=== PATIENT | female | born 1995 | race Two or more races ===

== ENCOUNTER 2021-05-28 12:25 | Inpatient (IN) | payer OTHER ==
[2021-05-28] MEDS ORDERED: FAMOTIDINE 20 MG/50 ML IVPB 20 MG/50 ML MG IVPB ONE (12:31)
[2021-05-28] MEDS ORDERED: methylPREDNISolone NA SUCC 125 MG/2 ML VIAL ONE (12:31)
[2021-05-28] MEDS ORDERED: EPINEPHrine 1:1,000 0.3 MG/0.3 ML SYR IM ONE ×2 (12:35→13:18)
[2021-05-28] MEDS ORDERED: SODIUM CHLORIDE 0.9% 500 ML INFUS.BAG IV ONE ×2 (12:35→13:20)
[2021-05-28] MEDS ORDERED: EPINEPHrine/PF 1 MG/1 ML (1:1,000) AMPULE ONE ×2 (12:37→12:47)
[2021-05-28] MEDS ORDERED: EPINEPHrine 1:1,000 4,000 MCG in DEXTROSE 5%-WATER - 996 ML IV SCH (12:45)
[2021-05-28 13:05] LABS: BASO % 0.5 % (0-2.0); EOS % 5.9 % (0-4.5); HEMATOCRIT 40.1 % (32.4-45.2); HEMOGLOBIN 13.4 GM/dL (10.7-15.3); MCH 28.7 pg (25.7-33.7); MCHC 33.5 g/dl (32.0-36.0); MEAN CELL VOLUME 85.7 fl (80-96); MEAN PLT VOLUME 8.2 fl (7.5-11.1); MONO % 8.1 % (3.8-10.2); NEUT % 44.5 % (42.8-82.8); PLATELET COUNT 245 10^3/uL (134-434); RBC 4.68 M/mm3 (3.60-5.2); RDW 13.2 % (11.6-15.6); WHITE BLOOD COUNT 6.4 K/mm3 (4.0-10.0)
[2021-05-28] MEDS ORDERED: methylPREDNISolone NA SUCC 125 MG/2 ML VIAL IVPUSH ONE (13:19)
[2021-05-28 13:20] LABS: CHLORIDE 105 mmol/L (98-107); SODIUM 140 mmol/L (136-145)
[2021-05-28 13:22] LABS: CALCIUM 9.4 mg/dL (8.5-10.1)
[2021-05-28 13:23] LABS: ALBUMIN 4.1 g/dl (3.4-5.0); ANION GAP 7 MMOL/L (8-16); BLOOD UREA NITROGEN 15.4 mg/dL (7-18); CO2 28 mmol/L (21-32); GLUCOSE,RANDOM 101 mg/dL (74-106)
[2021-05-28 13:26] LABS: CREATININE 0.7 mg/dL (0.55-1.3); SGOT/AST 47 U/L (15-37); SGPT/ALT 94 U/L (13-61)
[2021-05-28 13:27] LABS: BILIRUBIN,TOTAL 0.7 mg/dL (0.2-1); TOT PROT 7.6 g/dl (6.4-8.2)
[2021-05-28 13:29] LABS: ALK PHOS 93 U/L (45-117)
[2021-05-28] MEDS ORDERED: ONDANSETRON 4 MG/2 ML VIAL IVPUSH ONE (13:54)
[2021-05-28 15:54] VITALS: BMI 50.3
[2021-05-28] MEDS ORDERED: TRIMETHOBENZAMIDE HCL 300 MG CAPSULE PO ONE ×2 (18:27→22:43)
[2021-05-28 20:31] LABS: COCAINE, UR NEGATIVE (NEGATIVE); METHADONE, UR NEGATIVE (NEGATIVE); OPIATES, URI NEGATIVE (NEGATIVE); PHENCYCLIDINE,URINE NEGATIVE (NEGATIVE); URINE BARBITURATES NEGATIVE (NEGATIVE); URINE BENZODIAZEPINES NEGATIVE (NEGATIVE)
[2021-05-28 20:32] LABS: URINE AMPHETAMINES NEGATIVE (NEGATIVE)
[2021-05-28] MEDS ORDERED: MUPIROCIN 2% TOPICAL OINTMENT FOR DECOLONIZATION NS SCH (22:00)
[2021-05-28] MEDS ORDERED: CHLORHEXIDINE GLUCONATE 4% CLEANSER FOR DECOLONIZATION TP SCH (22:00)
[2021-05-29] MEDS ORDERED: ACETAMINOPHEN 1000 MG/100 ML BAG IVPB ONE (00:07)
[2021-05-29] MEDS ORDERED: TRIMETHOBENZAMIDE HCL 200MG/2ML INJ IM ONE (00:25)
[2021-05-29 07:14] LABS: BASO % 0.2 % (0-2.0); HEMATOCRIT 34.9 % (32.4-45.2); HEMOGLOBIN 11.8 GM/dL (10.7-15.3); LYMPH % 10.5 % (8-40); MCH 28.7 pg (25.7-33.7); MCHC 33.9 g/dl (32.0-36.0); MEAN CELL VOLUME 84.6 fl (80-96); MEAN PLT VOLUME 7.7 fl (7.5-11.1); MONO % 11.6 % (3.8-10.2); NEUT % 77.7 % (42.8-82.8); PLATELET COUNT 273 10^3/uL (134-434); RBC 4.12 M/mm3 (3.60-5.2)
[2021-05-29 07:38] LABS: ALBUMIN 3.9 g/dl (3.4-5.0); BLOOD UREA NITROGEN 8.1 mg/dL (7-18); CALCIUM 8.5 mg/dL (8.5-10.1)
[2021-05-29 07:39] LABS: MAGNESIUM 1.9 mg/dL (1.8-2.4)
[2021-05-29 07:41] LABS: CREATININE 0.8 mg/dL (0.55-1.3); PHOSPHOROUS 2.4 mg/dL (2.5-4.9)
[2021-05-29 07:42] LABS: TOT PROT 7.1 g/dl (6.4-8.2)
[2021-05-29] MEDS ORDERED: NAPH,MB-DB/K PH,MBDB POWDER PACKET PO ONE (07:55)
[2021-05-29 08:14] VITALS: PULSE 75
[2021-05-29 08:28] LABS: HIV INTERPRETATION NEGATIVE (NEGATIVE)
[2021-05-29] MEDS ORDERED: methylPREDNISolone NA SUCC 125 MG/2 ML VIAL IVPUSH SCH (10:00)
[2021-05-29] MEDS ORDERED: ENOXAPARIN NA (PORCINE) 40 MG/0.4 ML DISP.SYRIN SQ SCH (10:00)
[2021-05-29 10:30] VITALS: TEMP 98.5
[2021-05-29 10:47] LABS: BILIRUBIN,DIRECT 0.3 mg/dL (0.0-0.2)
[2021-05-29 12:53] VITALS: BP 124/60
[2021-05-29] MEDS ORDERED: NAPH,MB-DB/K PH,MBDB POWDER PACKET PO SCH (14:00)
== END 2021-05-29 13:52 | disposition home or self-care (01) | DRG 811 ==
LOC: JER 12:25 → JERBED 13:11 → JICU 16:17
PROVIDERS: ADMIT Internal Medicine Pulmonary Disease; ATTEND Internal Medicine Pulmonary Disease
DX: T78.09XA Anaphylactic reaction due to other food products, initial encounter (principal); R13.10 Dysphagia, unspecified; J02.9 Acute pharyngitis, unspecified; R11.0 Nausea; R06.02 Shortness of breath
CPT/HCPCS: 36415; 71045-TC-FY; 80053; 80307; 82248; 83735; 84100; 84702; 84703; 85025; 87389; 93005; 93010; 99285-25; C9803; U0003; U0005

== ENCOUNTER 2024-04-17 15:43 | Emergency (ER) | payer OTHER ==
[2024-04-17 15:52] VITALS: BP 110/74; PULSE 101; RESP 20; TEMP 98.3; BMI 22.8
[2024-04-17] MEDS ORDERED: ACETAMINOPHEN 325 MG TABLET (FP) ONE (16:22)
[2024-04-17] MEDS: ACETAMINOPHEN 325 MG TABLET (FP) PO ONE (16:23)
[2024-04-17 16:47] LABS: EPI CELLS >36 /uL (0-25.1); HYALINE CASTS 2 /uL (0-3.1); URINE APPEARANCE TURBID; URINE BACTERIA 8557 /uL (0-1359); URINE BILIRUBIN NEGATIVE (NEGATIVE); URINE COLOR ORANGE; URINE GLUCOSE (UA) NEGATIVE (NEGATIVE); URINE KETONE NEGATIVE (NEGATIVE); URINE LEUK ESTERASE 2+ (NEGATIVE); URINE NITRITE NEGATIVE (NEGATIVE); URINE PROTEIN 3+ (NEGATIVE); URINE RBC 2100 /uL (0-23.9); URINE WBC 5548 /uL (0-25.8)
[2024-04-17 16:48] LABS: HCG,QUALITATIVE URINE Negative
[2024-04-17] MEDS ORDERED: PHENAZOPYRIDINE HCL 100 MG TABLET (FP) ONE (17:30)
[2024-04-17] MEDS ORDERED: NITROFURANTOIN MACROCRYSTAL 50 MG CAPSULE (FP) ONE (17:30)
[2024-04-17] MEDS: PHENAZOPYRIDINE HCL 100 MG TABLET (FP) PO ONE (17:33)
[2024-04-17] MEDS: NITROFURANTOIN MONOHYD/M-CRYST 100 MG CAPSULE PO ONE (17:33)
== END 2024-04-17 17:33 | disposition home or self-care (01) ==
LOC: JER 15:43
DX: N39.0 Urinary tract infection, site not specified (principal); R39.15 Urgency of urination; R30.0 Dysuria
CPT/HCPCS: 81003; 84703; 87086; 87186; 99283-25